=== PATIENT | female | born 1960 | race Caucasian/White ===

== ENCOUNTER → 2018-07-15 | Outpatient (CLI) | payer MEDICARE, BC ==
[~2018-07-15] MED LIST: HYDROCODON-ACE1 EAC7 PO
== END ==
LOC: M.RAD 13:32
DX: N63.20 Unspecified lump in the left breast, unspecified quadrant (principal); R10.819 Abdominal tenderness, unspecified site

== ENCOUNTER 2018-12-15 20:03 | Emergency (ER) | payer MEDICARE, BC ==
[~2018-12-15] VITALS: Ht 172.7 cm; Wt 53.1 kg
[2018-12-15] MEDS ORDERED: LIPITOR10 MG PO (20:12)
[2018-12-15] MEDS ORDERED: FLEXERIL PO (20:12)
[2018-12-15] MEDS ORDERED: FOSAMAX 70 MG T70 MG PO (20:13)
[2018-12-15 21:26] VITALS: BP 132/73
--- NOTE | 2018-12-17 14:51 | EKG ---
[place] [address] ELECTROCARDIOGRAM REPORT Name: ISAAC FLORESTHILinnea DICKSON Room: [facility]#: [id number] Admission: 12/15/18 Attend Phys: Discharge: 12/15/18 Date of : 62 Report #: [id number] THIS REPORT FOR: //name// [facility] ED Test Date: 2018-12-15 Test Time: 20:09:09 Pat Name: DANIEL FLORES Department: Room: Gender: F Coutierier: lon : 1960 Requested By: Carla Espinosa Order Number: [id number] Lamont SAHNI: Jorge Mckeon Measurements Intervals [place] Rate: 112 P: 82 MN: 172 QRS: 69 QRSD: 87 T: 63 QT: 320 QTc: 437 Interpretive Statements Sinus tachycardia Right atrial enlargement Compared to ECG 06/09/2014 09:34:44 ST (T wave) deviation no longer present Electronically Signed On 12-17-2018 14:50:52 CDT by Jorge Mckeon [email or web address] <ELECTRONICALLY SIGNED> By: Jorge Mckeon MD, [facility] 12/17/18 1450 08 08 Jorge Mckeon MD, FACC /EPI
== END 2018-12-15 21:27 | disposition home or self-care (01) ==
LOC: M.ERS 20:03
DX: R07.89 Other chest pain (principal); E78.00 Pure hypercholesterolemia, unspecified; E03.9 Hypothyroidism, unspecified; F17.210 Nicotine dependence, cigarettes, uncomplicated; Z88.5 Allergy status to narcotic agent

== ENCOUNTER 2019-02-12 16:17 | Emergency (ER) | payer MEDICARE, BC ==
[~2019-02-12] VITALS: Ht 172.7 cm; Wt 57.1 kg
[~2019-02-12 16:17] MED LIST changes: +FLEXERIL PO; +FOSAMAX 70 MG T70 MG PO; +LIPITOR10 MG PO
[2019-02-12] MEDS ORDERED: TAPAZOLE5 MG PO (16:34)
[2019-02-12] MEDS ORDERED: TOPROL XL25 MG PO (16:34)
[2019-02-12 17:52] VITALS: BP 133/70
== END 2019-02-12 17:53 | disposition home or self-care (01) ==
LOC: M.ERS 16:17
DX: S22.31XA Fracture of one rib, right side, initial encounter for closed fracture (principal); S52.134A Nondisplaced fracture of neck of right radius, initial encounter for closed fracture; E78.00 Pure hypercholesterolemia, unspecified; F17.210 Nicotine dependence, cigarettes, uncomplicated; Z88.5 Allergy status to narcotic agent; W01.0XXA Fall on same level from slipping, tripping and stumbling without subsequent striking against object, initial encounter; Y92.89 Other specified places as the place of occurrence of the external cause; Y93.89 Activity, other specified; Y99.8 Other external cause status

== ENCOUNTER → 2019-07-29 | Outpatient (CLI) | payer MEDICARE, BC ==
[~2019-07-29] MED LIST changes: +TAPAZOLE5 MG PO; +TOPROL XL25 MG PO
== END ==
LOC: M.RAD 08:25
DX: Z12.31 Encounter for screening mammogram for malignant neoplasm of breast (principal)

== ENCOUNTER → 2019-08-08 | Outpatient (CLI) | payer MEDICARE, BC | LOC: M.ULTRA 08:44 | DX: N63.20 Unspecified lump in the left breast, unspecified quadrant (principal) ==

== ENCOUNTER → 2020-01-28 | Outpatient (CLI) | payer MEDICARE, BC | LOC: M.ULTRA 08:48 | PROVIDERS: ATTEND Family Medicine | DX: N64.4 Mastodynia (principal); N63.0 Unspecified lump in unspecified breast ==

== ENCOUNTER → 2020-07-28 | Outpatient (CLI) | payer MEDICARE, BC | LOC: M.RAD 12:43 | PROVIDERS: ATTEND Family Medicine | DX: Z12.31 Encounter for screening mammogram for malignant neoplasm of breast (principal) ==